=== PATIENT | female | born 1950 | race African-American/Black ===

== ENCOUNTER → 2017-01-24 | Outpatient (CLI) | payer OTHER ==
[~2017-01-24] MED LIST: ACCUNEB SO1.25 MG/1; BYSTOLIC 5 MG5 M1 PO; BYSTOLIC2.5 MG PO; CALCIUM 600 +1 EAC1 PO; CHEMOTHERAPY; DIOVAN40 MG PO; GLYBURIDE 5 MG T5 MG PO; IRON325 PO; JANUVIA100 MG PO; LANTUS100 UNIT/M SUBQ; LEVOTHYROXINE0.05 MG PO; NORCO 5-325 TA1 EACH PO; NORVASC10 MG PO; NOVOLOG FL100 UNIT/M SUBQ; OXYBUTYNIN 5 MG5 M2 PO; PRAVASTATIN SOD40 MG PO; TUMS PO; VALIUM5 MG PO; ZOFRAN ODT4 MG PO
== END ==
LOC: RAD 01:30
DX: Z85.3 Personal history of malignant neoplasm of breast (principal)

== ENCOUNTER → 2017-02-11 | Outpatient (CLI) | payer OTHER | LOC: ULTRA 02-01 11:15 | DX: R92.2 Inconclusive mammogram (principal); Z85.3 Personal history of malignant neoplasm of breast ==

== ENCOUNTER → 2017-08-23 | Outpatient (CLI) | payer OTHER | LOC: NUC 08-14 09:25 → EDSTATUS 08-14 09:27 → NUC 08-14 15:45 | DX: R74.8 Abnormal levels of other serum enzymes (principal); Z85.3 Personal history of malignant neoplasm of breast ==

== ENCOUNTER → 2021-07-12 | Outpatient (CLI) | payer OTHER | LOC: SJCVCIMAG 08:11 | PROVIDERS: ATTEND Internal Medicine Nephrology | DX: I07.1 Rheumatic tricuspid insufficiency (principal); N28.9 Disorder of kidney and ureter, unspecified ==